=== PATIENT | male | born 1950 | race Caucasian/White ===

== ENCOUNTER 2017-08-19 07:56 | Day surgery (SDC) | payer BC ==
[2017-08-18 09:11] VITALS: BMI 33.9
[~2017-08-19 07:56] MED LIST: DEXAMETHASONE SOD PHOSPHATE 10 MG/ML 1 ML VIAL IV ONE; HEPARIN SODIUM,PORCINE 5,000 UNIT/ML 1 ML VIAL SQ ONE; HYDROmorphone 0.5 MG/0.5 ML SYRINGE IVP PRN; LACTATED RINGERS 1,000 ML IV SCH; MIDAZOLAM 2 MG/2 ML VIAL IV PRN; ONDANSETRON 4 MG/2 ML VIAL IVP ONE; Pre Op ABX Message 1 EACH MISC MISCELLANE ONE
[2017-08-19 08:35] VITALS: RESP 16; TEMP 97.1
[2017-08-19] MEDS ORDERED: LIDOCAINE 1% 20 ML VIAL (10MG/ML) FOR IV START INTRADERMA ONE (08:35)
[2017-08-19 08:52] LABS: Glucose,Whole Blood 135 mg/dL (75-99)
[2017-08-19] MEDS ORDERED: PROPOFOL 10 MG/ML 20 ML VIAL IV ONE (08:58)
[2017-08-19] MEDS ORDERED: MIDAZOLAM 2 MG/2 ML VIAL ONE (08:58)
[2017-08-19] MEDS ORDERED: LIDOCAINE 1% INJ 10MG/ML (20 ML MDV) ONE (08:58)
[2017-08-19] MEDS ORDERED: fentaNYL (PF) 50 MCG/ML 2 ML AMP ONE (08:58)
[2017-08-19] MEDS ORDERED: BUPIVACAINE-EPI 0.5%-1:200,000 10 ML VIAL SQ ONE (09:13)
--- NOTE | 2017-08-19 10:00 | P.OP ---
Date of Procedure: 08/19/17 Preoperative Diagnosis: Sebaceous cyst of back Postoperative Diagnosis: Sebaceous cyst of left upper back Procedure(s) Performed: Excision of sebaceous cyst Anesthesia: local Surgeon: Lynette Harvey Estimated Blood Loss (ml): 1 Pathology: other Condition: stable Disposition: PACU Operative Findings: 2.8 x1.8x2.3 cm sebaceous cyst extending to through the subcutaneous tissues to the fascia. Description of Procedure: An informed consent the patient was taken up putting room. The patient was placed in right lateral decubitus position. The patient was given IV sedation after appropriate timeout. There is prepped and draped in the usual sterile surgical fashion after which 10 mL of half percent with epi was injected and surrounding tissues of the subcu basis. 15 blade was used to make an elliptical incision in the skin. Was deepened through the skin and subcutis tissue all the way down to the fascia with the help of electrocautery. Was completely removed and standard tissues without any holes in it. Hemostasis was secured with the help of electrocautery. Subcutis tissue was closed with 2 and 3-0 Vicryl. Skin was closed with 4-0 Monocryl. Dermabond was applied. Patient tolerated the procedure well there were no complications he was taken to recovery room in stable condition.
[2017-08-19 10:12] VITALS: BP 130/75; PULSE 93
== END 2017-08-19 10:29 | disposition home or self-care (01) ==
LOC: OR 07:56
PROVIDERS: ATTEND Surgery
DX: L72.0 Epidermal cyst (principal); Z88.1 Allergy status to other antibiotic agents; C64.1 Malignant neoplasm of right kidney, except renal pelvis; Z79.899 Other long term (current) drug therapy; L72.3 Sebaceous cyst
CPT/HCPCS: 11403; 12032; 88304; J2250; J2001; J3010; J2704

== ENCOUNTER 2019-01-01 06:45 | Day surgery (SDC) | payer MEDICARE, BC ==
[2018-12-28 09:00] VITALS: BMI 33.6
[~2019-01-01 06:45] MED LIST changes: -DEXAMETHASONE SOD PHOSPHATE 10 MG/ML 1 ML VIAL IV ONE; -HEPARIN SODIUM,PORCINE 5,000 UNIT/ML 1 ML VIAL SQ ONE; -HYDROmorphone 0.5 MG/0.5 ML SYRINGE IVP PRN; +LIDOCAINE 1% 20 ML VIAL (10MG/ML) FOR IV START INTRADERMA PRN; -MIDAZOLAM 2 MG/2 ML VIAL IV PRN; -ONDANSETRON 4 MG/2 ML VIAL IVP ONE; -Pre Op ABX Message 1 EACH MISC MISCELLANE ONE
[2019-01-01 07:20] VITALS: TEMP 97.8
[2019-01-01 07:24] LABS: Glucose,Whole Blood 106 mg/dL (75-99)
[2019-01-01] MEDS ORDERED: PROPOFOL 10 MG/ML 20 ML VIAL IV ONE (07:42)
--- NOTE | 2019-01-01 08:45 | P.PCN ---
Date of Procedure: 01/01/19 Procedure(s) Performed: Procedure: Colonoscopy and polypectomy. Preoperative diagnosis: Screening for neoplasia, patient has history of polyps and family history of colon cancer. Postoperative diagnosis: 1. Multiple small polyps snared but no large polyps or cancer. 2. Sigmoid diverticulosis with no evidence of acute diverticulitis or strictures. 3. External and low-grade internal hemorrhoids with no evidence of bleeding. Preparation: HalfLytely prep. Sedation: Was provided by anesthesia. Brief clinical history: The patient a 68-year-old male who was scheduled for this evaluation because of history of polyps and family history of colon cancer in his father. He had multiple evaluations in the past the last was around 5 years ago. At this time, he has no abdominal complaints or change in bowel habits. He has intermittent rectal bleeding. Procedure: With the patient on his left lateral decubitus position and after informed consent and adequate sedation, the perianal area was inspected and it did not show any fissures or fistulas. There was skin redundancy and external skin tags. No masses were felt on digital rectal examination. The Olympus CFH 190L video colonoscope was then inserted in the rectum in the usual fashion and advanced to the cecum. There was occasional diverticular orifices seen scattered in the sigmoid but I saw no evidence of acute diverticulitis or strictures. Multiple small polyps were seen and were snared and retrieved by suction. There was one in the proximal right colon, two around the hepatic flexure and one in the sigmoid around 50 cm from the anal verge. The mucosa appeared healthy. I retroflexed endoscope in the rectum before the endoscope was withdrawn. There was low-grade internal hemorrhoids and prominent anal papillae but there was no active bleeding. The patient tolerated the procedure well. Plan: The patient was reassured. Discussed dietary measures and local care for hemorrhoids. He will follow up with you as planned and I recommended repeat exam in 5 years.
[2019-01-01 08:51] LABS: Glucose,Whole Blood 101 mg/dL (75-99)
[2019-01-01 08:52] VITALS: BP 128/82; PULSE 88; RESP 16
== END 2019-01-01 09:30 | disposition home or self-care (01) ==
LOC: ORWHC2ENDO 06:45
DX: Z12.11 Encounter for screening for malignant neoplasm of colon (principal); D12.5 Benign neoplasm of sigmoid colon; D12.3 Benign neoplasm of transverse colon; D12.2 Benign neoplasm of ascending colon; K64.8 Other hemorrhoids; K64.4 Residual hemorrhoidal skin tags; K57.30 Diverticulosis of large intestine without perforation or abscess without bleeding; I10 Essential (primary) hypertension; F40.240 Claustrophobia; K62.89 Other specified diseases of anus and rectum; L98.7 Excessive and redundant skin and subcutaneous tissue; E11.9 Type 2 diabetes mellitus without complications; Z90.5 Acquired absence of kidney; Z79.899 Other long term (current) drug therapy; Z79.811 Long term (current) use of aromatase inhibitors; Z86.010 Personal history of colon polyps; Z80.0 Family history of malignant neoplasm of digestive organs; Z88.3 Allergy status to other anti-infective agents; Z79.84 Long term (current) use of oral hypoglycemic drugs
CPT/HCPCS: 88305; 45385; J2704

== ENCOUNTER → 2022-11-15 | Outpatient (CLI) | payer MEDICARE ==
[2022-11-15 17:55] LABS: Basophils # (A) 0.03 X 10*3/uL (0.00-0.10); Basophils % (A) 0.6 %; Eosinophils # (A) 0.15 X 10*3/uL (0.04-0.35); Eosinophils % (A) 3.1 %; HCT 53.1 % (39.6-50.0); HGB 17.4 g/dL (13.0-17.0); Immature Grans, Automated 0 %; Lymphocytes # (A) 1.46 X 10*3/uL (0.90-5.00); Lymphocytes % (A) 29.8 %; MCH 29.2 pg (27.0-32.0); MCHC 32.8 g/dL (32.0-37.0); MCV 89.1 fL (80.0-97.0); Monocytes # (A) 0.43 X 10*3/uL (0.20-1.00); Monocytes % (A) 8.8 %; NRBC Per 100 WBC 0 /100 WBCS (0.0-0.0); Neutrophils # (A) 2.83 X 10*3/uL (1.80-7.70); Neutrophils % (A) 57.7 %; Platelet Count 147 X 10*3/uL (140-440); RBC 5.96 X 10*6/uL (4.40-5.60)
[2022-11-15 18:07] LABS: African American GFR (CKD) 58.2 (60.0-200.0); Blood Urea Nitrogen 18.2 mg/dL (9.0-27.0); Non-African American GFR(CKD) 50.2 (60.0-200.0)
== END ==
LOC: LABPAT 12:03
PROVIDERS: ATTEND Surgery
DX: Z01.818 Encounter for other preprocedural examination (principal); I45.10 Unspecified right bundle-branch block; R94.31 Abnormal electrocardiogram [ECG] [EKG]; D64.9 Anemia, unspecified; F17.200 Nicotine dependence, unspecified, uncomplicated
CPT/HCPCS: 82565; 84520; 85025; 93005

== ENCOUNTER 2022-11-19 10:13 | Day surgery (SDC) | payer MEDICARE ==
--- NOTE | 2022-11-19 07:39 | P.GSHP ---
History of Present Illness H&P Date: 11/19/22 Chief Complaint: Right inguinal hernia 71-year-old male here today for elective repair right inguinal hernia. Patient was seen recently in July for colonoscopy. At the time patient also had complaints of a hernia in the right groin. The patient is a retired emergency department physician. Hernia has been enlarging gradually over the years. Mild pain occasionally. Past Medical History Past Medical History: Cancer, Diabetes Mellitus, Hyperlipidemia, Hypertension, Prostate Disorder, Renal Disease Additional Past Medical History / Comment(s): rt kidney ca, gout, hx pericarditis. enlarged prostate, spinal stenosis. stage 3 renal insufficiency. erythrocytosis History of Any Multi-Drug Resistant Organisms: None Reported Additional Past Surgical History / Comment(s): rt kidney removed. colonoscopyW/POLYPECTOMY. BILAT RK SX ON EYES. SEBACEOUS CYST REMOVED FROM BACK 07/2017 Past Anesthesia/Blood Transfusion Reactions: No Reported Reaction Additional Past Anesthesia/Blood Transfusion Reaction / Comment(s): SEVERE CLAUSTROPHOBIC Smoking Status: Light tobacco smoker - Past Family History Father Family Medical History: Cancer Additional Family Medical History / Comment(s): colon Brother(s) Family Medical History: Cancer Additional Family Medical History / Comment(s): colon Sister(s) Family Medical History: Cancer Additional Family Medical History / Comment(s): cancer of bile duct Medications and Allergies Home Medications Medication Instructions Recorded Confirmed Type Glimepiride [Amaryl] 2 mg PO DAILY 08/18/17 11/16/22 History Losartan Potassium 100 mg PO DAILY 08/18/17 11/16/22 History Empagliflozin [Jardiance] 25 mg PO DAILY 12/28/18 11/16/22 History Dulaglutide [Trulicity] 0.75 mg SQ SA 11/16/22 11/16/22 History Febuxostat [Uloric] 40 mg PO DAILY 11/16/22 11/16/22 History Metoprolol Succinate (ER) [Toprol 25 mg PO DAILY 11/16/22 11/16/22 History XL] Allergies Allergy/AdvReac Type Severity Reaction Status Date / Time levofloxacin [From Levaquin] Allergy Rash/Hives Verified 11/16/22 11:48 Surgical - Exam Physical exam: General: Well-developed, well-nourished HEENT: Normocephalic, sclerae nonicteric Abdomen: Nontender, nondistended, reducible right inguinal hernia Extremities: No edema Neuro: Alert and oriented Assessment and Plan (1) Right inguinal hernia Narrative/Plan: 71-year-old male with reducible right inguinal hernia. We'll proceed with laparoscopic da Anna assisted repair right inguinal hernia with mesh, possible open, possible bilateral. Risks of bleeding, infection, recurrence, bladder and bowel injury, numbness, nerve injury, conversion to an open procedure were discussed with the patient. The patient understands and wishes to proceed. Status: Acute Code(s): K40.90 - UNIL INGUINAL HERNIA, W/O OBST OR GANGR, NOT SPCF RECUR SNOMED Code(s): 332941488
[~2022-11-19 10:13] MED LIST changes: +ACETAMINOPHEN TAB 500 MG TAB PO PRN; +DEXAMETHASONE SOD PHOSPHATE 4 MG/ML 1 ML VIAL IV ONE; +HEPARIN SODIUM,PORCINE/PF 5,000 UNIT/0.5 ML SYRINGE SQ PRN; +HYDROmorphone 0.5 MG/0.5 ML SYRINGE IVP PRN; -LACTATED RINGERS 1,000 ML IV SCH; -LIDOCAINE 1% 20 ML VIAL (10MG/ML) FOR IV START INTRADERMA PRN; +MIDAZOLAM 2 MG/2 ML VIAL IV PRN; +ONDANSETRON 4 MG/2 ML VIAL IVP ONE
[2022-11-19 10:57] VITALS: TEMP 97.5
[2022-11-19] MEDS: LACTATED RINGERS 1,000 ML IV SCH ×2 (10:57→11:22)
[2022-11-19 10:58] LABS: Glucose,Whole Blood 182 mg/dL (70-110)
[2022-11-19] MEDS ORDERED: SODIUM CHLORIDE 0.9% 1,000 ML IV ONE (11:22)
[2022-11-19] MEDS ORDERED: TAMSULOSIN 0.4 MG CAP.ER.24H PO STA (12:34)
[2022-11-19] MEDS ORDERED: NEOSTIGMINE 1 MG/ML 10 ML VIAL ONE (12:36)
[2022-11-19] MEDS ORDERED: GLYCOPYRROLATE 0.2 MG/ML 2 ML VIAL ONE (12:36)
[2022-11-19] MEDS ORDERED: PHENYLEPHRINE-0.9% NACL SYG 1,000 MCG/10 ML SYRINGE ONE (12:36)
[2022-11-19] MEDS ORDERED: fentaNYL (PF) 50 MCG/ML 2 ML AMP ONE (12:36)
[2022-11-19] MEDS ORDERED: SUCCINYLCHOLINE CHLORIDE 200 MG/10 ML VIAL IV ONE (12:36)
[2022-11-19] MEDS ORDERED: PROPOFOL 10 MG/ML 20 ML VIAL IV ONE (12:36)
[2022-11-19] MEDS ORDERED: ROCURONIUM 10 MG/ML (5 ML VIAL) IV ONE (12:36)
[2022-11-19] MEDS ORDERED: LIDOCAINE 2% INJ 20 MG/ML (2 ML VIAL) ONE (12:36)
[2022-11-19] MEDS ORDERED: HYDROmorphone (PF) 1 MG/ML ONE (12:36)
[2022-11-19] MEDS ORDERED: TAMSULOSIN 0.4 MG CAP.ER.24H PO ONE (12:38)
[2022-11-19] MEDS ORDERED: BUPIVACAINE-EPI 0.5%-1:200,000 10 ML VIAL SQ ONE (12:41)
[2022-11-19] MEDS ORDERED: SODIUM CHLORIDE 0.9% 500 ML 500 ML IV ONE (14:31)
[2022-11-19] MEDS ORDERED: ONDANSETRON 4 MG/2 ML VIAL IVP PRN (14:50)
--- NOTE | 2022-11-19 14:59 | P.OP ---
Date of Procedure: 11/19/22 Procedure(s) Performed: PREOPERATIVE DIAGNOSIS: Reducible right inguinal hernia POSTOPERATIVE DIAGNOSIS: Reducible right indirect and direct inguinal hernia PROCEDURE: Laparoscopic repair reducible right inguinal hernia with mesh SURGEON: Dr. Couch ANESTHESIA: General OPERATIVE PROCEDURE DETAILS: Patient was placed in the operating table in the supine position. The patient was placed under general anesthesia. The abdomen was prepped and draped in usual sterile fashion. Entrance into the perineal cav ity occurred using a 5 mm optical trocar in the left midabdomen. Full insufflation took place up to 15 mmHg. As suspected there was a small amount of adhesions between the omentum and the abdominal wall in the supra umbilical location. I was able to place a 8 mm trocar at the supraumbilical location avoiding these adhesions. An additional 8 mm trocar was placed in the right upper quadrant laterally and the initial 5 was then switched to an 8 mm trocar. The patient was placed in Trendelenburg. The robotic arms were then brought in and docked into place. The fenestrated bipolar was used in the left arm and the laparoscopic kandice was utilized in the right arm. A 30 8 mm scope was used in the up position. The peritoneal cavity was inspected. The patient had a moderate sized indirect inguinal hernia on the right-hand side. The peritoneum was incised in a horizontal fashion cephalad to the internal inguinal ring. Following that careful dissection of the preperitoneal space took place. This took place using both electrocautery, sharp dissection but primarily blunt dissection. Visualization of the pubic tubercle and Stephen's ligament took place medially. Full dissection took place laterally as well. We found a small direct hernia in the direct space. The hernia sac was fully dissected. Once we had adequate space the [id number] Progrip mesh was advanced into the preperitoneal space and flattened out appropriately to cover all potential hernia sites. A short running absorbable 30V lock suture was used to secure the lower medial aspect of the mesh to the Stephen's ligament and this stitch was then extended anteriorly and superiorly in the midline. The peritoneal defect was then closed using a absorbable 2-0 VLok suture. The hernia sac was incorporated into the peritoneal closure to help prevent future recurrence. The pneumoperitoneum was then evacuated. The skin of all 3 sites was closed using a 4-0 Monocryl stitch. Skin glue was then applied. TYPE OF MESH USED: Progrip LOCATION OF MESH: Preperitoneal FIXATION: 3 LV lock absorbable PREOPERATIVE DISCUSSION ON SMOKING CESSASTION: Yes PREOPERATIVE DISCUSSION ON MORBID OBESITY: Yes PREOPERATIVE DISCUSSION ON APPROPRIATE USE OF NARCOTIC USE: Yes PREOPERATIVE EDUCATION: Multi Modal, Smoking Cessation and Weight Loss with BMI over 35. DISPOSITION: Stable to recovery room
[2022-11-19] MEDS ORDERED: ACETAMINOPHEN TAB 325 MG TAB PO SCH (15:00)
[2022-11-19 15:07] LABS: Glucose,Whole Blood 218 mg/dL (70-110)
[2022-11-19] MEDS ORDERED: INSULIN ASPART (NovoLOG) 100 UNIT/ML VIAL SQ ONE (15:07)
[2022-11-19] MEDS ORDERED: LACTATED RINGERS 1,000 ML IV ONE (16:16)
[2022-11-19 17:44] VITALS: BP 135/74; PULSE 75; RESP 18
[2022-11-19] MEDS ORDERED: IBUPROFEN 600 MG TAB PO SCH (18:00)
== END 2022-11-19 17:44 | disposition home or self-care (01) ==
LOC: OR 10:13
PROVIDERS: ATTEND Surgery
DX: K40.90 Unilateral inguinal hernia, without obstruction or gangrene, not specified as recurrent (principal); I12.9 Hypertensive chronic kidney disease with stage 1 through stage 4 chronic kidney disease, or unspecified chronic kidney disease; E11.22 Type 2 diabetes mellitus with diabetic chronic kidney disease; N18.30 Chronic kidney disease, stage 3 unspecified; E78.5 Hyperlipidemia, unspecified; Z85.528 Personal history of other malignant neoplasm of kidney; Z87.438 Personal history of other diseases of male genital organs; Z87.448 Personal history of other diseases of urinary system; Z79.84 Long term (current) use of oral hypoglycemic drugs; Z79.899 Other long term (current) drug therapy; Z88.1 Allergy status to other antibiotic agents; F17.200 Nicotine dependence, unspecified, uncomplicated
CPT/HCPCS: 49650; 86900; 86901; 86850; C1781; J0330; J1100; J2710; J0690; J2405; J3010; J1170; J2370; J2704; J1644; J2001

== ENCOUNTER → 2023-07-22 | Outpatient (CLI) | payer MEDICARE ==
--- NOTE | 2023-07-22 08:27 | US ---
EXAMINATION TYPE: US liver DATE OF EXAM: 07/22/2023 COMPARISON: NONE CLINICAL INDICATION: Male, 72 years old with history of R79.89 ABNORMAL FINDINGS OF BLOOD CHEMISTRY; abn iron levels, h/o renal cell on the right, right nephrectomy TECHNIQUE: Multiple sonographic images of the right upper quadrant are obtained. FINDINGS: EXAM MEASUREMENTS: Liver Length: 15.4 cm Gallbladder Wall: 0.2 cm CBD: 0.8 cm Right Kidney: Surgically absent CIS COORDINATOR NOTES:bowl gas limits study Pancreas: portions seen appear wnl Liver: focal fatty sparring adjacent to GB, intercostal imaging due to bowel gas Gallbladder: wnl Evidence for sonographic Macario's sign: no CBD: wnl Right Kidney: Surgically absent IMPRESSION: Hepatic steatosis with areas of focal fatty sparing.
== END | disposition home or self-care (01) ==
LOC: RADUSWWP 07:55
PROVIDERS: ATTEND Internal Medicine Hematology & Oncology
DX: K76.0 Fatty (change of) liver, not elsewhere classified (principal); R79.89 Other specified abnormal findings of blood chemistry; Z90.5 Acquired absence of kidney
CPT/HCPCS: 76705